=== PATIENT | male | born 1995 | race African-American/Black ===

== ENCOUNTER 2018-06-28 00:12 | Emergency (ER) | payer MEDICAID, OTHER ==
[~2018-06-28] VITALS: Ht 193 cm; Wt 81.6 kg
[2018-06-28 01:00] VITALS: BP 106/70
[2018-06-28] MEDS ORDERED: cefTRIAXone 2 GM in NS 110 ML IV SCH (01:00)
[2018-06-28 01:37] LABS: HEMOGLOBIN 15.8 G/DL (14.2-18.0); MEAN CORPUSCULAR VOLUME 76 FL (80-99); PLATELET COUNT 224 K/UL (150-450); RED BLOOD COUNT 6.42 M/UL (4.70-6.10); RED CELL DISTRIBUTION WIDTH 11.9 % (11.6-14.8); WHITE BLOOD COUNT 11.1 K/UL (4.8-10.8)
[2018-06-28 01:57] LABS: ANION GAP 11 mmol/L (5-15); BLOOD UREA NITROGEN 11 mg/dL (7-18); CALCIUM 9.9 MG/DL (8.5-10.1); CARBON DIOXIDE 28 MMOL/L (21-32); CHLORIDE 103 MMOL/L (98-107); CREATININE 0.9 MG/DL (0.55-1.30); POTASSIUM 3.6 MMOL/L (3.5-5.1); SODIUM 142 MMOL/L (136-145)
[2018-06-28 02:07] LABS: ALANINE AMINOTRANSFERASE 62 U/L (12-78); ALBUMIN 4.3 G/DL (3.4-5.0); ALBUMIN/GLOBULIN RATIO 1.1 (1.0-2.7); ALKALINE PHOSPHATASE 83 U/L (46-116); ASPARTATE AMINO TRANSFERASE 70 U/L (15-37); BILIRUBIN,TOTAL 0.6 MG/DL (0.2-1.0); CKMB 3.2 NG/ML (0.0-3.6); CREATINE KINASE 291 U/L (26-308)
[2018-06-28 02:12] LABS: BILIRUBIN, URINE NEGATIVE (NEGATIVE); GLUCOSE, URINE (UA) NEGATIVE (NEGATIVE); KETONES,URINE 2+ (NEGATIVE); NITRITE,URINE NEGATIVE (NEGATIVE); PH,URINE 5 (4.5-8.0); PROTEIN,URINE 1+ (NEGATIVE); UROBILINOGEN,URINE NORMAL MG/DL (0.0-1.0)
[2018-06-28 02:27] LABS: APPEARANCE,URINE SLIGHTLY CLOUDY; COLOR,URINE YELLOW; LEUKOCYTE ESTERASE ,URINE 2+ (NEGATIVE)
[2018-06-28] MEDS ORDERED: IBUPROFEN600 MG ORAL (03:29)
[2018-06-28] MEDS ORDERED: CEPHALEXIN500 MG ORAL (03:29)
[2018-06-28 03:47] VITALS: BP 109/69
--- NOTE | 2018-06-28 05:00 | Emergency Room Report ---
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
--- NOTE | 2018-07-01 16:00 | Cardiology Report ---
APPROVED REPORT EKG Measurement Heart [id number] Normal sinus rhythm ST elevation, probably due to early repolarization Borderline ECG
== END 2018-06-28 03:47 | disposition home or self-care (01) ==
LOC: EDBD 00:12 → EDSEX 00:12 → EMR 01:22
DX: N39.0 Urinary tract infection, site not specified (principal); G82.20 Paraplegia, unspecified
CPT/HCPCS: 36415; 71045; 80053; 81003; 82550; 82553; 83605; 83735; 84100; 84484; 85025; 87040; 87086; 87181; 93005; 96365; 96366; 99284; J0696

== ENCOUNTER 2018-11-27 21:38 | Emergency (ER) | payer OTHER ==
[~2018-11-27] VITALS: Ht 182.9 cm; Wt 81.6 kg
[~2018-11-27 21:38] MED LIST: CEPHALEXIN500 MG ORAL; IBUPROFEN600 MG ORAL
[2018-11-27 22:00] VITALS: BP 112/63
--- NOTE | 2018-11-27 22:00 | NUR ---
ED Nurse Note: Patient wheelchaired into Ed c/o of a UTI, patient does self catherize at home and states that the feeling he has today is consistent on his UTIs of the past, patient is alert and oriented x4
[2018-11-27] MEDS ORDERED: Levofloxacin 500mg tab ORAL ONE (22:15)
[2018-11-27 22:30] VITALS: BP 120/65
[2018-11-27] MEDS ORDERED: LEVAQUIN500 MG ORAL (22:30)
--- NOTE | 2018-11-27 22:30 | NUR ---
ED Nurse Note: Patient is cleared by Dr. Patrick to be discharged. patient is alert and oriented x4, ambulatory with a steady gait, VSS. patient acknowledged the need to follow up with PMD within a week if symptoms dont improve, all belongings sent home with patient, ID band removed
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
== END 2018-11-27 22:30 | disposition home or self-care (01) ==
LOC: EMR 22:00
DX: N39.0 Urinary tract infection, site not specified (principal); G82.20 Paraplegia, unspecified
CPT/HCPCS: 87086; 99283

== ENCOUNTER 2019-11-22 22:47 | Emergency (ER) | payer OTHER ==
[~2019-11-22] VITALS: Ht 193 cm; Wt 79.4 kg
[~2019-11-22 22:47] MED LIST changes: +LEVAQUIN500 MG ORAL
[2019-11-22 22:53] VITALS: BP 120/70
--- NOTE | 2019-11-22 22:53 | NUR ---
ED Nurse Note: Pt walked in c/o foul odor urine since 11/18/19. pt is paraplegic and straight cath himself every day. Addendum: 11/22/19 at 2322 by RACHEL ED Nurse Note: Pt wheeled himself in via w/c for c/o foul odor urine since 11/18/19. pt is paraplegic and straight cath himself every day.
[2019-11-22] MEDS ORDERED: LEVAQUIN500 MG ORAL (23:15)
[2019-11-22] MEDS ORDERED: Levofloxacin 500mg tab ORAL ONE (23:15)
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
[2019-11-22 23:18] VITALS: BP 125/74
--- NOTE | 2019-11-22 23:21 | NUR ---
ER DISCHARGE NOTE: Patient is cleared to be discharged per ERMD, pt is aox4, on room air, with stable vital signs. pt was given dc and prescription instructions, pt was able to verbalize understanding, pt id band removed without complications. pt left via w/c. pt took all belongings.
== END 2019-11-22 23:18 | disposition home or self-care (01) ==
LOC: EMR 23:07
DX: N30.00 Acute cystitis without hematuria (principal)
CPT/HCPCS: 87086; 87181; Z7502; 99282

== ENCOUNTER 2020-03-20 19:09 | Emergency (ER) | payer OTHER ==
[~2020-03-20] VITALS: Ht 193 cm; Wt 86.2 kg
[2020-03-20 19:33] VITALS: BP 118/69
--- NOTE | 2020-03-20 19:33 | NUR ---
ED Nurse Note: Pt wheelchair bound, came into ED from home [place] fever d/t possible UTI. Pt states previous hx of UTI. Pt states that he self catheterizes up to 4 x day d/t unable to incontinence. Pt aao x 4, VSS no ss of distress noted. Pt given catheter kit for urine sample. ERPA at bedside. Pt refused blood draw. ERMD aware.
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
[2020-03-20] MEDS ORDERED: IBUPROFEN600 M1 ORAL (19:45)
[2020-03-20] MEDS ORDERED: CEPHALEXIN500 MG ORAL (19:45)
[2020-03-20] MEDS ORDERED: cefTRIAXone 1 GM in NS 55 ML IVPB ONE (19:45)
[2020-03-20] MEDS ORDERED: Lidocaine 1% MPF 10mg/ml 5ml INJ ONE (19:45)
--- NOTE | 2020-03-20 19:45 | NUR ---
ED Nurse Note: UA sent to lab
[2020-03-20 20:00] LABS: APPEARANCE,URINE CLOUDY; BILIRUBIN, URINE NEGATIVE (NEGATIVE); COLOR,URINE PALE YELLOW; GLUCOSE, URINE (UA) NEGATIVE (NEGATIVE); KETONES,URINE 3+ (NEGATIVE); LEUKOCYTE ESTERASE ,URINE 3+ (NEGATIVE); NITRITE,URINE NEGATIVE (NEGATIVE); PH,URINE 8 (4.5-8.0); PROTEIN,URINE 2+ (NEGATIVE); UROBILINOGEN,URINE 1 MG/DL (0.0-1.0)
[2020-03-20 20:45] VITALS: BP 120/73
--- NOTE | 2020-03-20 20:45 | NUR ---
ER DISCHARGE NOTE: Patient is cleared to be discharged home per ERMD, pt is aox4, 99% on room air, with stable vital signs. pt was given dc and prescription instructions, pt was able to verbalize understanding, pt id band removed. pt is able to leave facility via self/wheelchair. pt took all belongings.
== END 2020-03-20 20:45 | disposition home or self-care (01) ==
LOC: EMR 20:07
DX: N39.0 Urinary tract infection, site not specified (principal); R50.9 Fever, unspecified; Z99.3 Dependence on wheelchair
CPT/HCPCS: 81003; 87086; 87181; 96372; J0696; Z7502; 99284